=== PATIENT | male | born 1990 | race Two or more races ===

== ENCOUNTER 2024-06-19 16:25 | Emergency (ER) | payer SELFPAY ==
[2024-06-19 16:28] VITALS: BMI 27.4
[2024-06-19 16:59] VITALS: BP 123/78; PULSE 87; RESP 20; TEMP 36.9; O2SAT 98
--- NOTE | 2024-06-19 17:23 | XR_ITS ---
Examination: Fingers, right hand third digit 3 views Technique: AP, oblique, lateral views right hand third digit. Exam date and time: June 19, 2024 1727 hrs. Indications: Injury to the third digit today with pain Findings: No acute fracture No dislocation 1 mm opacity which appears to be on the skin on the oblique view on Impression: No fracture
--- NOTE | 2024-06-19 17:27 | EDNOTE_ITS ---
<Statement entered by Julia Eric MD - 06/23/24 07:13> As co-signing physician, I was present and available for consult prn. I concur with the plan and care as documented by the midlevel provider. ED Wound/Laceration-RME/HPI General Chief Complaint: Wound/Laceration Stated Complaint: LACERATION TO RIGHT MIDDLE FINGER Time Seen by Provider: 06/19/24 16:57 Source: patient Arrival date/time: 06/19/24 16:25 This is a 33-year-old male who presents to the emergency department with complaints of a laceration to his right middle finger. He reports that he works for the [employer] when he accidentally smashed his finger with a machine. Upon finger contusion he noticed he had a laceration to the pulp of his palmar aspect of his distal third digit right hand. Denies any other injuries. Does report he has up to date tetanus shot.. Mode of arrival: ambulatory Limitations: no limitations Related Data Previous Rx's ?Medication ?Instructions ?Recorded cephalexin 500 mg capsule 500 mg PO BID 5 days #10 cap s 06/19/24 ibuprofen 600 mg tablet 600 mg PO Q8H PRN fever or p ain 06/19/24 #30 tabs Allergies Allergy/AdvReac Type Severity Reaction Status Date / Time No Known Allergies Allergy Verified 06/19/24 16:27 Review of Systems Review of Systems Systems Reviewed: All systems reviewed, normal except as documented Narrative Review of Systems: Gen: No fever, no chills, no weight loss EYES: No discharge, no visual changes, no pain HEENT: No ear pain, no congestion, no sore throat PULM: No shortness of breath, no cough, no congestion CV: No chest pain, no dyspnea on exertion, no palpitations GI: No nausea, no vomiting, no diarrhea, no pain, no constipation : No frequency, no urgency,? no dysuria Musc/skel: No joint pain, no back pain, + finger pain Skin: No rash? ED Exam General Limitations: Present no limitations General appearance: Present alert and in no apparent distress Head Head exam: Present atraumatic Eye Eye exam: Present normal appearance, PERRL and EOMI ENT ENT exam: Present normal exam, normal oropharynx and mucous membranes moist Neck Neck exam: Present normal inspection, full ROM and trachea midline Chest Chest inspection: Present normal inspection and symmetric chest wall rise Respiratory Respiratory exam: Present normal lung sounds bilaterally Cardiovascular Cardiovascular exam: Present regular rate, normal rhythm and normal heart sounds Abdominal Exam Abdominal exam: Present soft and normal bowel sounds; Absent distention or tenderness Extremities Exam Extremities exam: Present normal inspection and full ROM Expanded Upper Extremity Exam Shoulder exam: Present normal inspection Arm exam: Present normal inspection Elbow exam: Present normal inspection Forearm/Wrist exam: Present normal inspection Hand L/R front image: 2 1. laceration (1 cm laceration noted to third digit distal palmar aspect. CMS intact.) Back Exam Back exam: Present normal inspection and full ROM Neurological Exam Neurological exam: Present alert, oriented X3 and CN II-XII intact Psychiatric Psychiatric exam: Present normal affect and normal mood Skin Skin exam: Present warm, dry, intact and normal color Course Quality Measures none Orders Category Date Time Status Wound Care NOW Care 06/19/24 17:27 Completed XR finger RT min 2V Stat Exams 06/19/24 17:23 Completed Lidocaine 1% 20 ml [Xylocaine 1% 20 ML] Med 06/19/24 17:23 Discontinued 10 ml IM X1 ONE Lidocaine 1% 20 ml [Xylocaine 1% 20 ML] Med 06/19/24 17:45 Discontinued 20 ml INFL X1 ONE Vital Signs Vital signs: Vital Signs Temperature 98.5 F 06/19/24 16:59 Pulse Rate 87 06/19/24 16:59 Respiratory Rate 20 06/19/24 16:59 Blood Pressure 123/78 06/19/24 16:59 Pulse Oximetry (%) 98 06/19/24 16:59 Oxygen Delivery Method Room Air 06/19/24 16:59 Procedures -ED Laceration Laceration 1: Site: hand (Third phalanx) Side (If applicable): right Size (cm): 1 Description: linear Depth: simple, single layer Local Anesthetic: lidocaine 1% Amount of anesthesia used (mL): 3 Pre-repair: irrigated extensively Skin layer closed with: vicryl Size (cm): 4-0 Number of sutures: 3 Technique: simple, interrupted Wound / Laceration MDM Narrative MDM Narrative:: Patient does have a 1 cm laceration to the pulp of the distal third digit. Patient's wound was cleansed and scrubbed with Betadine and sterile water No foreign object noted on outer skin. Patient's wound was well-approximated with 3 sutures. Patient tolerated procedure well See procedure note Advised to take oral antibiotics to prevent infection. Advised to follow-up with PCP or Worker's Comp. in 3 days. Return to the emergency department this any worsening symptoms or change in condition. Patient data External records reviewed:: [facility] previous records Clinical information provided by:: patient Social determinants that could affect healthcare access:: none Patient has the following chronic illnesses:: None How is presenting disease/condition affected by chronic disease/condition?: no chronic disease Evaluation data The following diagnostics were reviewed and interpreted by me:: radiology exam(s) Lab and/or radiology exams considered but not ordered:: No Interpretation Summary: Examination: Fingers, right hand third digit 3 views Technique: AP, oblique, lateral views right hand third digit. Exam date and time: June 19, 2024 1727 hrs. Indications: Injury to the third digit today with pain Findings: No acute fracture No dislocation 1 mm opacity which appears to be on the skin on the oblique view on Impression: No fracture Right Medications / Prescriptions Medications or Prescriptions considered but not ordered:: No Medication administrations:: Medication Administration History Discontinued Medications Lidocaine HCl (Lidocaine Hcl 1% 20 Ml Vial) 10 ml IM X1 ONE Stop: 06/19/24 17:24 Lidocaine HCl (Lidocaine Hcl 1% 20 Ml Vial) 20 ml INFL X1 ONE Stop: 06/19/24 17:46 All medications administered and effective Consultations Consultation(s) initiated? (list below): No Diagnosis Wound Differential Diagnosis: laceration, abscess, abrasion and avulsion of skin Most likely diagnosis given after review of the tests above:: Finger contusion, laceration Admission Indicated Admission indicated?: not indicated Admission Request Was there a request for admission?: No Disposition Plan Disposition Plan: Discharge Discharge Attestation Discharge Attestation: The patient and all family members were given an opportunity to ask questions and understood the discharge instructions. Discharge instructions specifically effects, indications for sooner follow up or return to the emergency department, and the expected course of current diagnosis. Patient condition: Stable Discharge Plan Plan Patient Disposition: HOME (Self Care) Patient condition on transfer: Stable Prescriptions/Referrals Prescriptions/Med Rec: New cephalexin 500 mg capsule 500 mg PO BID 5 Days Qty: 10 0RF ibuprofen 600 mg tablet 600 mg PO Q8H PRN (Reason: fever or pain) Qty: 30 0RF Problem List Clinical Impression: Laceration, Contusion of finger with damage to nail Patient/Caregiver Discharge Instructions Discharge Activity: activity as tolerated Education Materials: ED Finger Contusion, ED Laceration, Hand: All Closures Additional Instructions: You had 3 sutures placed to your right middle finger. Please keep area clean and dry. Follow-up with your primary doctor or Worker's Comp. doctor. Please follow up with Primary Doctor in 7-10 day for suture removal. Please return to ER if theres is any sign of infection. Print Language: Libyan Stand Alone Forms: Lizabeth Award Info., Work/School Release, Patient Portal Info Letter PA/CORPORATE COMMUNICATIONS MANAGER Supervising Physician PA/CORPORATE COMMUNICATIONS MANAGER Supervising Physician: Dr. Velazquez
== END 2024-06-19 18:20 | disposition home or self-care (01) ==
LOC: SERX 18:43
PROVIDERS: Emergency Provider Emergency Medicine
DX: S61.312A Laceration without foreign body of right middle finger with damage to nail, initial encounter (principal); W31.9XXA Contact with unspecified machinery, initial encounter; Y93.89 Activity, other specified; Y92.63 Factory as the place of occurrence of the external cause; Y99.0 Civilian activity done for income or pay
CPT/HCPCS: 12001; 73140; 99283

== ENCOUNTER 2024-06-22 10:21 | Emergency (ER) | payer MEDICAID, SELFPAY ==
[2024-06-22 10:23] VITALS: BMI 24.4
[2024-06-22 10:45] VITALS: BP 121/69; PULSE 70; RESP 18; TEMP 36.9; O2SAT 99
--- NOTE | 2024-06-22 10:46 | XR_ITS ---
EXAMINATION: Ankle, left 3 views . Technique: Ankle AP, oblique, lateral 3 views Date and time of exam: June 22, 2024 1051 hours INDICATIONS: Twisting injury to the ankle one week ago, ankle pain. FINDINGS: No acute fracture No dislocation No foreign body IMPRESSION: No acute fracture
--- NOTE | 2024-06-22 10:46 | XR_ITS ---
Examination: Foot, left, 3 views Technique: AP, oblique, lateral views foot, 3 views Date and time of exam: June 1051 hours INDICATIONS: Twisting injury to the foot beginning 7 days ago FINDINGS: No acute fracture No dislocation No foreign body IMPRESSION: No acute fracture
--- NOTE | 2024-06-22 13:35 | EDNOTE_ITS ---
Lower Extremity Injury RME/HPI General Chief Complaint: Ankle/Foot Injury Stated Complaint: INJURY LEFT ANKLE PAIN 1 WEEK AGO Time Seen by Provider: 06/22/24 10:27 Arrival date/time: 06/22/24 10:21 33-year-old male presents the emergency department today with complaints of left ankle injury approximately 1 week ago patient reports he twisted his left ankle and since has been having some swelling to the ankle with pain Limitations: no limitations Related Data Previous Rx's ?Medication ?Instructions ?Recorded cephalexin 500 mg capsule 500 mg PO BID 5 days #10 cap s 06/19/24 ibuprofen 600 mg tablet 600 mg PO Q8H PRN fever or p ain 06/19/24 #30 tabs Allergies Allergy/AdvReac Type Severity Reaction Status Date / Time No Known Allergies Allergy Verified 06/22/24 10:26 Review of Systems Review of Systems Systems Reviewed: All systems reviewed, normal except as documented Constitutional Constitutional: Reports system reviewed and no additional complaints, except as documented, Denies fever(s) and Denies headache(s) Eyes Eyes: Reports system reviewed and no additional complaints, except as documented and Denies blurry vision ENT Ears, Nose, Mouth, and Throat: Reports system reviewed and no additional complaints, except as documented, Denies headache(s), Denies nasal congestion and Denies nasal discharge Cardiovascular Cardiovascular: Reports system reviewed and no additional complaints, except as documented, Denies chest pain and Denies dyspnea Respiratory Respiratory: Reports system reviewed and no additional complaints, except as documented, Denies chest congestion, Denies cough and Denies dyspnea Gastrointestinal Gastrointestinal: Reports system reviewed and no additional complaints, except as documented and Denies abdominal pain Musculoskeletal Musculoskeletal: Reports system reviewed and no additional complaints, except as documented, Reports arthralgias, Denies deformity and Reports joint swelling Integumentary/Breasts Skin/Breast: Reports system reviewed and no additional complaints, except as documented and Denies rash Neurologic Neurologic: Reports system reviewed and no additional complaints, except as documented, Reports as per HPI and Denies headache(s) Past Medical History Past Medical History NEUROLOGIC: Negative Neurological Disorders CARDIAC: Negative Cardiac Disorders ED Exam General Limitations: Present no limitations General appearance: Present alert and in no apparent distress Head Head exam: Present atraumatic Eye Eye exam: Present normal appearance, PERRL and EOMI ENT ENT exam: Present normal exam, normal oropharynx and mucous membranes moist Neck Neck exam: Present normal inspection, full ROM and trachea midline Chest Chest inspection: Present normal inspection and symmetric chest wall rise Respiratory Respiratory exam: Present normal lung sounds bilaterally Cardiovascular Cardiovascular exam: Present regular rate, normal rhythm and normal heart sounds Abdominal Exam Abdominal exam: Present soft and normal bowel sounds Extremities Exam Extremities exam: Present full ROM, tenderness, normal capillary refill and joint swelling; Absent pedal edema or calf tenderness Back Exam Back exam: Present normal inspection and full ROM Neurological Exam Neurological exam: Present alert, oriented X3 and CN II-XII intact Psychiatric Psychiatric exam: Present normal affect and normal mood Skin Skin exam: Present warm, dry, intact and normal color Course Quality Measures none Orders Category Date Time Status herminia wrap [Splint / Immobilizer] STAT Care 06/22/24 13:36 Completed XR ankle comp LT min 3V Stat Exams 06/22/24 10:46 Completed XR foot comp LT min 3V Stat Exams 06/22/24 10:46 Completed Vital Signs Vital signs: Vital Signs Temperature 98.5 F 06/22/24 10:45 Pulse Rate 70 06/22/24 10:45 Respiratory Rate 18 06/22/24 10:45 Blood Pressure 121/69 06/22/24 10:45 Pulse Oximetry (%) 99 06/22/24 10:45 Oxygen Delivery Method Room Air 06/22/24 10:45 O2 saturation 99% room air with normal limits Extremity Injury, Lower MDM Narrative MDM Narrative:: 33-year-old male presents the emergency department today with complaints of left ankle injury approximately 1 week ago patient reports he twisted his left ankle and since has been having some swelling to the ankle with pain On exam patient well-appearing patient does not appear ill or toxic patient does not appear in acute distress Imaging of the left ankle obtained no acute fracture dislocation noted Patient discharged home in no distress to follow-up with primary care doctor in the next 24 to 48 hours and for any worsening symptoms to return to the ER immediately Patient data External records reviewed:: [facility] previous records Clinical information provided by:: none Social determinants that could affect healthcare access:: none Patient has the following chronic illnesses:: None How is presenting disease/condition affected by chronic disease/condition?: no chronic disease Evaluation data The following diagnostics were reviewed and interpreted by me:: radiology exam(s) Lab and/or radiology exams considered but not ordered:: Radiology obtain Interpretation Summary: Reviewed by me Medications / Prescriptions Medications or Prescriptions considered but not ordered:: Given Medication administrations:: Given Consultations Consultation(s) initiated? (list below): No Diagnosis Extremity Injury, Lower Differential Diagnosis: ankle sprain and strain and ankle fracture Most likely diagnosis given after review of the tests above:: Ankle sprain Admission Indicated Admission indicated?: not indicated Admission Request Was there a request for admission?: No Disposition Plan Disposition Plan: Discharge Discharge Attestation Discharge Attestation: The patient and all family members were given an opportunity to ask questions and understood the discharge instructions. Discharge instructions specifically effects, indications for sooner follow up or return to the emergency department, and the expected course of current diagnosis. Patient condition: Stable Discharge Plan Plan Patient Disposition: HOME (Self Care) Disposition Comment: Stable Prescriptions/Referrals Prescriptions/Med Rec: No Action cephalexin 500 mg capsule 500 mg PO BID 5 Days Qty: 10 0RF ibuprofen 600 mg tablet 600 mg PO Q8H PRN (Reason: fever or pain) Qty: 30 0RF Referrals: No Primary/Family,Physician [Primary Care Provider] - In 1 week Problem List Clinical Impression: Left ankle sprain Patient/Caregiver Discharge Instructions Education Materials: ED Ankle Sprain (Adult) Additional Instructions: Please follow up with your primary care doctor in the next 24-48hrs for any worsening symptoms return here immediately Print Language: Swazi Stand Alone Forms: Lizabeth Award Info., Patient Portal Info Letter PA/CRISTINO Supervising Physician PA/CRISTINO Supervising Physician: Dr Naqvi
== END 2024-06-22 14:23 | disposition home or self-care (01) ==
PROVIDERS: Emergency Provider Emergency Medicine
DX: S93.402A Sprain of unspecified ligament of left ankle, initial encounter (principal); X50.1XXA Overexertion from prolonged static or awkward postures, initial encounter
CPT/HCPCS: 73610; 73630; 99283